=== PATIENT | female | born 1975 | race Caucasian/White ===

== ENCOUNTER 2024-05-21 07:24 | Emergency (ER) | payer OTHER, SELFPAY ==
[2024-05-21] VITALS (36 sets, daily range): BP systolic 157–196; BP diastolic 87–116; PULSE 74–111; RESP 20; TEMP 37–37.6; O2SAT 93–98
--- NOTE | ~2024-05-21 | CT_ITS ---
CT EXAMINATION: CT facial bones wo con DATE: 05/21/2024 08:17 INDICATION: Right facial swelling and draining abscess for 5 days. No known injury. TECHNIQUE: Computed tomography (CT) of the facial bones and maxillofacial region was performed withou t intravenous contrast. Automated exposure control and iterative reconstruction technique were employ ed. Exam dose: 288.72 mGy-cm total exam DLP. COMPARISON: None. FINDINGS: Minimally displaced comminuted nasal bone fractures. No facial fracture or bone destruction is noted otherwise. The frontozygomatic sutures, orbital rims and kennedy, zygomatic arches, maxillary bones and pterygoid plates are intact. There is mild mucoperiosteal thickening along the lower posterior lateral right maxillary sinus and p aranasal sinuses included mastoid air cells otherwise are normally developed and aerated. Bilateral optic drusen. There is right periorbital and facial soft tissue swelling and subcutaneous fat infiltration consiste nt with edema and/or infection, extending into the upper neck. No abscess is identified. No tonsillar abscess. No prevertebral soft tissue swelling or emphysema. The piriform sinuses, vallec ulae, epiglottis, aryepiglottic folds and larynx are unremarkable. Parotid and submandibular glands are unremarkable. IMPRESSION: Right periorbital and facial soft tissue swelling and cutaneous fat infiltration consist ent with edema and/or infection; no abscess cavity is identified Bilateral optic drusen Reviewed, dictated and finalized at [facility] Reviewed, dictated and finalized at [facility]. N PICKER IMPRESSION: Right periorbital and facial soft tissue swelling and cutaneous fa t infiltration consistent with edema and/or infection; no abscess cavity is annmarie ntified Bilateral optic drusen
--- NOTE | ~2024-05-21 | CT_ITS ---
EXAMINATION: CT soft tissue neck chest wo DATE: 05/21/2024 08:18 INDICATION: Facial swelling, draining abscess for 5 days TECHNIQUE: Computed tomography (CT) of the neck was performed with 75 mL Omnipaque-350 intravenous co ntrast. Automated exposure control and iterative reconstruction technique were employed. Exam dose: 1024.80 mGy-cm total exam DLP. COMPARISON: None FINDINGS: There is soft tissue swelling and subcutaneous fat infiltration consistent with edema and/o r infection involving the right periorbital and facial region, extending into the neck, with skin thi ckening and thickening of the right platysma. There is some fluid along the lateral and posterior mar gin of the right submandibular gland. Up to 9 x 14 mm right submandibular likely reactive lymphadenopathy. Shotty bilateral lateral compart ment lymph nodes, larger on the right, measuring up to approximately 5 x 12 mm. Normal size and homogeneous density of the thyroid gland. Parotid and submandibular glands are unremarkable. No abscess is identified. No tonsillar abscess. Piriform sinuses, valleculae, epiglottis, aryepiglottic folds, larynx and the a irway are unremarkable. No prevertebral soft tissue swelling or emphysema. Multifocal patchy bilateral pulmonary infiltrates involving upper lobes, middle lobe and both lower l obes, consistent with bilateral pneumonia. Cardiomegaly. No pericardial effusion. 4.5 cm ascending aortic aneurysm. The aortic arch measures 3 cm diameter. IMPRESSION: Right periorbital, facial and cervical soft tissue swelling, subcutaneous edema and/or i nfection, overlying soft tissue thickening; no abscess cavity is identified Multifocal bilateral pneumonia Reviewed, dictated and finalized at [facility] Reviewed, dictated and finalized at [facility]. READER IMPRESSION: Right periorbital, facial and cervical soft tissue swelling, subcu taneous edema and/or infection, overlying soft tissue thickening; no abscess ca vity is identified Multifocal bilateral pneumonia
--- NOTE | 2024-05-21 07:35 | ED.GENADULT ---
HPI - General Adult General Chief complaint: Skin/Abscess/Foreign Body Stated complaint: facial swelling Time Seen by Provider: 05/21/24 07:34 Source: patient Mode of arrival: ambulatory Limitations: no limitations History of Present Illness HPI narrative: 49-year-old white female with history of methamphetamine abuse brought in by her son for facial swelling and abscess on her right cheek draining for last 5 days was progressively gotten worse to the point where her whole face is swollen and her eyes are swollen shut. She has not seen a doctor in years she has a history of hypertension but is not on any medicine history of anxiety depression. Son said his mother called her last night to come over and stay with him last night the right side of her face was swollen she refused to come to the emergency department. And then this morning the left side of face was also swollen and both eyes were swollen shut. She complains of having difficulty breathing. Related Data Home Medications ?Medication ?Instructions ?Recorded ?Confirmed ?Last Taken ?Type No Home Medications 05/21/24 05/21/24 Unknown History Allergies Allergy/AdvReac Type Severity Reaction Status Date / Time No Known Allergies Allergy Verified 05/21/24 08:13 Exam Narrative: White female patient with moderate distress.? Head : severe facial swelling the eyes swollen shut bilaterally with a open draining sore on her right cheek about the size of a dime tenderness her face.? Eyes conjunctiva pink sclera nonicteric.? Extraocular movements are intact.? Ears externally normal.? TMs are normal. ?Oropharynx is clear with moist mucous membranes without exudates.? Patient is edentulous. Neck is supple nontender no lymphadenopathy.? Back is nontender.? Lungs are clear.? Heart is regular rate and rhythm without murmurs gallops or rubs.? Chest wall nontender. Abdomen is soft and nontender no hepatosplenomegaly or masses no CVA tenderness no abdominal bruits.? Extremities no cyanosis clubbing or edema.? Skin is warm and dry . Her skin has multiple small scabs in healing scars round about half a cm to a cm.? Neurological patient is alert and oriented x4.? Motor and sensory grossly intact.? Gait not tested. Course Vital Signs Vital signs: Vital Signs Temperature 37.3 C 05/21/24 07:24 Pulse Rate 111 H 05/21/24 07:24 Respiratory Rate 20 05/21/24 07:24 Blood Pressure 157/105 H 05/21/24 07:24 Pulse Oximetry 94 05/21/24 07:24 Oxygen Delivery Room Air 05/21/24 07:24 Temperature 37.2 C 05/21/24 10:46 Pulse Rate 84 05/21/24 11:31 Respiratory Rate 20 05/21/24 11:31 Blood Pressure 192/104 H 05/21/24 11:31 Pulse Oximetry 96 05/21/24 11:31 Oxygen Delivery Room Air 05/21/24 11:31 Medical Decision Making MDM Narrative Medical decision making narrative: ?Patient placed in room: One with her son ? History and physical was performed. blood cultures were obtained. CT maxillofacial AndCT neck and chest without contrast: IMPRESSION: Right periorbital, facial and cervical soft tissue swelling, subcutaneous edema and/or infection, overlying soft tissue thickening; no abscess cavity is identified Multifocal bilateral pneumonia Flu COVID RSV negative CBC 17.9 wbc's PT 12.2,PTT INR normal CMP sodium 134 potassium 3 magnesium 1.1 lactic acid 1.3 ETOH normal Independent Historian: son External Source Review: Differential Dx includes but not limited to: Medications were Reviewed: No home meds. Patient abuses methamphetamine Medications given: vancomycin per pharmacist Zosyn 3.375 g, Tylenol 1000 mg p.o. magnesium 4 g IV, potassium 40 mEq p.o. Independently Interpreted by me: Shared decision Making: evaluation was discussed with the patient all questions were asked and answered she agreed with the plan. Social Situation Impacting Patients Care: Methamphetamine abuse Discussed with Dr. Cruz ENT at 11:20 a.m. no abscess andthere is no orbital cellulitis. Probably nothing to do from an ENT standpoint. Will talk to their hospitalist at [facility] . 12:07 p.m. talk to hospitalist accepted her to [facility] on a waiting list. She wants a COVID swab accepted by at [facility] in [place] bed number [id number] at 12:25 p.m. DISCHARGE DIAGNOSIS: facial cellulitis multifocal bilateral pneumonia methamphetamine abuse DISPOSITION : transfer to higher level care CONDITION AT DISCHARGE: stable Vital Signs Vital Signs: Vital Signs Temperature 37.3 C 05/21/24 07:24 Pulse Rate 111 H 05/21/24 07:24 Respiratory Rate 20 05/21/24 07:24 Blood Pressure 157/105 H 05/21/24 07:24 Pulse Oximetry 94 05/21/24 07:24 Oxygen Delivery Room Air 05/21/24 07:24 Temperature 37.2 C 05/21/24 10:46 Pulse Rate 84 05/21/24 11:31 Respiratory Rate 20 05/21/24 11:31 Blood Pressure 192/104 H 05/21/24 11:31 Pulse Oximetry 96 05/21/24 11:31 Oxygen Delivery Room Air 05/21/24 11:31 Lab Data 05/21/24 07:53 05/21/24 07:53 Labs: Lab Results 05/21/24 Range/Units 07:53 WBC 17.9 H (4.8-10.8) K/mm3 RBC 4.59 (4.20-5.40) M/mm3 Hgb 13.3 (12.0-15.0) g/dL Hct 39.3 (35.0-49.0) % MCV 85.6 (78.0-102.0) fL MCH 29.0 (27.0-31.0) pg MCHC 33.8 (32-36) g/dL RDW 12.9 (11.6-14.4) % Plt Count 273 (150-420) K/mm3 MPV 10.5 (9.2-11.8) fl PT 12.2 H (9.50-12.1) Seconds INR 1.1 APTT 29.6 (23.9-30.70) Sec Sodium 134 L (136-145) mmol/L Potassium 3.0 L (3.5-5.1) mmol/L Chloride 97 L (98-108) mmol/L Carbon Dioxide 22 (21-32) mmol/L Anion Gap 15 H (4-12) mmol/L BUN 7 (7-18) mg/dL Creatinine 1.06 H (0.55-1.02) mg/dL Estim Creat Clear Calc 66 ml/min Estimated GFR 55 L (59 - ) Glucose 173 H (70-99) mg/dL Calculated Osmolality 280 L (285-295) mOsm/kg Lactic Acid 1.3 (0.4-2.0) mmol/L Calcium 8.3 L (8.5-10.1) mg/dL Magnesium 1.1 L (1.8-2.4) mg/dL Total Bilirubin 1.6 H (0.00-1.00) mg/dL AST 19 (15-37) U/L ALT 23 (14-59) U/L Alkaline Phosphatase 85 (46-116) U/L Total Protein 6.4 (6.4-8.2) g/dL Albumin 2.7 L (3.4-5.0) g/dL Urine Opiates Screen Negative (Negative) Urine Methadone Screen Negative (Negative) Ur Barbiturates Screen Negative (Negative) Ur Phencyclidine Scrn Negative (Negative) Ur Amphetamine Screen Positive A (Negative) U Benzodiazepines Scrn Negative (Negative) Urine Cocaine Screen Negative (Negative) U Cannabinoids Screen Negative (Negative) Ethyl Alcohol < 3 (0-6) mg/dL Influenza A (RT-PCR) Negative (Negative) Influenza B (RT-PCR) Negative (Negative) RSV (RT-PCR) Negative (Negative) SARS-CoV-2 RNA (RT-PCR) Negative (Negative) Discharge Plan Discharge Clinical Impression: Cellulitis of face, Amphetamine abuse Bilateral pneumonia Qualifiers: Pneumonia type: due to unspecified organism Lung location: unspecified part of lung Qualified Code(s): J18.9 - Pneumonia, unspecified organism Patient Disposition: Acute Care Hospital Condition: Stable Additional Instructions: accepted by at [facility] in [place] bed number [id number] at 12:25 p.m. Patient Language: Dutch Prescriptions: No Action No Home Medications Follow-up/Referrals: UNKNOWN,DOCTOR [Primary Care Provider] - Time of Disposition: 12:27
[2024-05-21 08:27] LABS: Hematocrit 39.3 % (35.0-49.0); Hemoglobin 13.3 g/dL (12.0-15.0); Mean Corpuscular HGB Conc 33.8 g/dL (32-36); Mean Corpuscular Volume 85.6 fL (78.0-102.0); Mean Platelet Volume 10.5 fl (9.2-11.8); Platelet Count Result 273 K/mm3 (150-420); Red Blood Count 4.59 M/mm3 (4.20-5.40); Red Cell Distribution Width 12.9 % (11.6-14.4); White Blood Count 17.9 K/mm3 (4.8-10.8)
[2024-05-21] MEDS: PIPERACILLN/TAZ 3.375GM/NS50ML 3.375 GM/50 ML BAG IVPB (08:27)
[2024-05-21] MEDS: Please add drug allergy info to patient profile. 1 EACH XX (08:27)
[2024-05-21 08:36] LABS: INR 1.1; Partial Thromboplastin Time 29.6 Sec (23.9-30.70); Prothrombin Time 12.2 Seconds (9.50-12.1)
[2024-05-21] MEDS: IBUPROFEN 600 MG TABLET PO (08:39)
[2024-05-21 08:50] LABS: Lactic Acid Reflex 1.3 mmol/L (0.4-2.0)
[2024-05-21 08:56] LABS: Alanine Aminotransferase 23 U/L (14-59); Albumin Level 2.7 g/dL (3.4-5.0); Alkaline Phosphatase 85 U/L (46-116); Anion Gap 15 mmol/L (4-12); Aspartate Amino Transferase 19 U/L (15-37); Bilirubin,Total 1.6 mg/dL (0.00-1.00); Blood Urea Nitrogen 7 mg/dL (7-18); Calcium 8.3 mg/dL (8.5-10.1); Carbon Dioxide 22 mmol/L (21-32); Chloride 97 mmol/L (98-108); Estimated CRCL calculation 66 ml/min; Estimated Glomerular Filt Rate 55; Glucose 173 mg/dL (70-99); Magnesium 1.1 mg/dL (1.8-2.4); Osmolality Calculated 280 mOsm/kg (285-295); Sodium 134 mmol/L (136-145); Total Protein 6.4 g/dL (6.4-8.2)
[2024-05-21 09:07] LABS: SARS-CoV-2 RNA PCR Negative (Negative)
[2024-05-21 09:08] LABS: Influenza A QL RT-PCR Negative (Negative); Influenza B QL RT-PCR Negative (Negative); RSV RNA, RT-PCR Negative (Negative)
[2024-05-21 09:09] LABS: Ethanol < 3 mg/dL (0-6)
[2024-05-21] MEDS: MAGNESIUM SULF 4 GM/WATER100ML 4 GM/100 ML BAG IVPB (10:27)
[2024-05-21] MEDS: POTASSIUM CHLORIDE 20 MEQ PACKET (FOR LIQUID) 40 MEQ PO (10:27)
[2024-05-21] MEDS: VANCOMYCIN 1,500 MG/NS 500 ML 1,500 MG/500 ML BAG 250 MG IVPB (10:28)
[2024-05-21 12:06] LABS: Amphetamine Screen Urine Positive (Negative); Barbiturate Screen Urine Negative (Negative); Benzodiazepines Screen Urine Negative (Negative); Cannabinoid Screen Urine Negative (Negative); Cocaine Screen Urine Negative (Negative); Methadone Screen Urine Negative (Negative); Opiate Screen Urine Negative (Negative); Phencyclidine Screen Urine Negative (Negative)
--- NOTE | 2024-05-21 12:45 | PC.NURSE ---
report to ángel kaiser at [facility], .
--- NOTE | 2024-05-22 12:20 | PC.NURSE ---
PRELIMINARY BLOOD CULTURE REPORT; GRAM POSITIVE COCCI CL[employer]ER, CALLED TO AMY JUNE RN @ [facility]
--- NOTE | 2024-05-23 13:49 | PC.NURSE ---
PRELIMINARY BLOOD CULTURES FAXED TO [phone], PATIENT IS IN THE ICU [phone] BED 11
--- NOTE | 2024-05-24 12:09 | PC.NURSE ---
FINAL BLOOD CULTURE RESULTS: ISOLATE 1: STAPHYLOCOCCUS AUREUS. RESULTS WITH C&S FAXED TO [phone].
== END 2024-05-21 15:00 | disposition short-term general hospital (02) ==
PROVIDERS: Emergency Provider Emergency Medicine
DX: L03.211 Cellulitis of face (principal); F15.19 Other stimulant abuse with unspecified stimulant-induced disorder; J18.9 Pneumonia, unspecified organism; Z20.822 Contact with and (suspected) exposure to COVID-19
CPT/HCPCS: 36415; 70486; 70490; 71250; 80053; 80307; 82077; 83605; 83735; 85027; 85610; 85730; 87040; 87181; 87637; 96365; 96366; 96367; 99285; A9270; J2543; J3370; J3475